=== PATIENT | male | born 1980 | race Caucasian/White ===

== ENCOUNTER 2017-05-10 16:46 | Emergency (ER) | payer MEDICAID ==
[2017-05-10] MEDS ORDERED: NS 2,000 ML IV ONE (17:10)
[2017-05-10] MEDS ORDERED: ACETAMINOPHEN 500 MG TAB PO ONE (17:11)
--- NOTE | 2017-05-10 17:20 | EDPHY ---
H & P Time Seen by Provider: 05/10/17 17:01 HPI/ROS: 48 hr prior to arrival this patient did very fast paced cross fit type work out over a 20 min. Of time and he has developed bilateral triceps swelling since then and pain-4/10 at baseline, 8/10 with movement and associated tingling and slight itching in his arms that are reminiscent of symptoms he had during an episode of rhabdomyolysis last March. He requests workup and treatment to evaluate for this possible diagnosis. He admits that he took much faster pace than usual with his work out on Sunday & he's concerned that that may have caused another episode of rhabdo. ROS: Constitutional: No fevers or other symptoms HEENT: No complaints Neuro: Some paresthesias but no focal numbness or weakness. Pulmonary: No chest pain or shortness of breath : No hematuria or dark urine is noticed. No flank pain. GI: No nausea vomiting Integumentary: No skin rash 10 point ROS is otherwise negative Social History: Nonsmoker, no recreational drug use, no steroid use or energy drinks. No excessive caffeine intake He drinks alcohol socially Physical Exam: General Appearance: Alert, no distress. Eyes: Pupils equal and round no pallor or injection. ENT, Mouth: Mucous membranes moist. Respiratory: There are no retractions, lungs are clear to auscultation. Cardiovascular: Regular rate and rhythm. Neurological: GCS 15 with no focal deficits. He maintains normal light touch sensory exam bilateral upper extremities. Skin: Warm and dry, no rashes. Musculoskeletal: Patient has bilateral triceps swelling with associated tenderness. He is unable to completely flexes arms past 120 degrees or so because of increasing pain without maneuver and both triceps. There is no deformity to the triceps however. The no ecchymosis is evident though he has sleeve tattoos of both arms that make analysis of skin color difficult. No other areas of significant muscle tenderness. Extremities are symmetrical, full range of motion. Psychiatric: Mood and affect are normal DIFFERENTIAL DIAGNOSIS: After history and physical exam differential diagnosis was considered for muscle strain, rhabdomyolysis, given bilateral location, doubt tendon tear or muscle tear. Constitutional: Initial Vital Signs Temperature (C) 37 C 05/10/17 17:24 Heart Rate 62 05/10/17 17:24 Respiratory Rate 18 05/10/17 17:24 Blood Pressure 134/62 H 05/10/17 17:24 O2 Sat (%) 96 05/10/17 17:24 O2 Delivery Mode Room Air Allergies/Adverse Reactions: No Known Allergies Allergy (Unverified 05/10/17 16:59) Home Medications: Medication Instructions Recorded Methocarbamol [Robaxin 750 mg (*)] 750 - 1,500 mg PO QID PRN #30 tab 05/10/17 MDM/Departure - MDM Medications Given: Discontinued Medications Acetaminophen (Tylenol) 1,000 mg PO EDNOW ONE Stop: 05/10/17 17:12 Last Admin: 05/10/17 17:20 Dose: 1,000 mg Sodium Chloride (Ns) 2,000 mls @ 0 mls/hr IV EDNOW ONE; Wide Open PRN Reason: Protocol Stop: 05/10/17 17:11 Last Admin: 05/10/17 17:21 Dose: 2,000 mls Ketorolac Tromethamine (Toradol) 15 mg IVP EDNOW ONE Stop: 05/10/17 18:10 Last Admin: 05/10/17 18:21 Dose: 15 mg ED Course/Re-evaluation: IV normal saline bolus Tylenol p.o. Review of labs reveals normal CBC, normal chemistries including normal kidney function. CPK is mildly elevated to twice normal-in the 400s. Urinalysis reveals no proteinuria. Trace positive for blood on automated and negative for RBCs-possible trace hemosiderin. Discussion: Patient here with triceps muscle strain. Given results of labs-no evidence of actual rhabdomyolysis. Given his pain, will treat him with Toradol IV, normal saline bolus, and recommend methocarbamol, Tylenol and ibuprofen as an outpatient. I discussed these lab findings with the patient, his diagnosis and treatment plan. I answered all of his questions. Patient is stable without further complaints that time of discharge. - Depart Disposition: Home, Routine, Self-Care Clinical Impression: Localized swelling, mass and lump, upper limb, bilateral, History of rhabdomyolysis Strain of triceps muscle Qualifiers: Encounter type: initial encounter Laterality: unspecified laterality Qualified Code(s): S46.319A - Strain of muscle, fascia and tendon of triceps, unspecified arm, initial encounter Condition: Good Instructions: Muscle Strain (ED) Additional Instructions: Diagnosis: Bilateral triceps muscle strain and upper arm swelling. Your CPK-muscle breakdown enzyme did not reach levels today of rhabdomyolysis. Plan: Drink plenty fluids Ibuprofen if needed for swelling and pain Tylenol in addition Robaxin/methocarbamol muscle relaxant in addition if needed for pain or muscle spasm/tightness. Return if you develop bloody urine, flank pain or any other concerns. Prescriptions: Methocarbamol [Robaxin 750 mg (*)] 750 - 1,500 mg PO QID PRN #30 tab PRN Reason: Muscle Spasms Referrals: NONE *PRIMARY CARE P,. [Primary Care Provider] - As per Instructions
[2017-05-10 17:26] VITALS: TEMP 98.6
[2017-05-10 17:52] LABS: CREATINE KINASE 431 IU/L (0-224)
[2017-05-10] MEDS ORDERED: KETOROLAC 15 MG/1 ML SDV IVP ONE (18:09)
[2017-05-10 18:25] VITALS: BP 140/75; PULSE 57; RESP 16; O2SAT 98
== END 2017-05-10 18:47 | disposition home or self-care (01) ==
LOC: CED 16:46
PROC: 3E0337Z Introduction of Electrolytic and Water Balance Substance into Peripheral Vein, Percutaneous Approach (ICD-10-PCS; principal; 2017-05-10)
DX: S46.311A Strain of muscle, fascia and tendon of triceps, right arm, initial encounter (principal); S46.312A Strain of muscle, fascia and tendon of triceps, left arm, initial encounter; R22.31 Localized swelling, mass and lump, right upper limb; R22.32 Localized swelling, mass and lump, left upper limb; Z87.39 Personal history of other diseases of the musculoskeletal system and connective tissue; X58.XXXA Exposure to other specified factors, initial encounter
CPT/HCPCS: 80048-PO; 81003-PO; 81015-PO; 82550-PO; 82553-PO; 96374; J1885

== ENCOUNTER 2017-09-04 14:52 | Emergency (ER) | payer MEDICAID ==
[2017-09-04] MEDS ORDERED: NS 1,000 ML IV ONE ×2 (15:17→16:59)
[2017-09-04] MEDS ORDERED: KETOROLAC 30 MG/1 ML SDV IVP ONE (15:17)
--- NOTE | 2017-09-04 15:26 | EDPHY ---
H & P Time Seen by Provider: 09/04/17 15:02 HPI/ROS: This patient participated in high volume work out 3 days ago but consisted of a lot of running and weight lifting. He notes over the past 24 hr swelling to his right latissimus dorsi and shoulder muscles as well as his elbows bilaterally and reports a feeling of warmth and swelling to these areas. He reports 5/10 pains. He today also notes onset of generalized fatigue. He notes no other associated symptoms but he has had 1 episode of rhabdomyolysis after a high-volume work out in the past is apprehensive that he may have rhabdomyolysis. He also felt much improved and a prior similar episode when he received IV fluids and nonsteroidal anti-inflammatories. ROS: Constitutional: No fevers. Positive fatigue. HEENT: No complaints new line pulmonary: No shortness of breath or cough. Cardiovascular: No lightheadedness. No heart palpitations GI: No nausea vomiting : No flank pain or hematuria or dark colored urine. Integumentary: No skin rashes Neuro: No numbness or tingling in his extremities. 10 point ROS is otherwise negative. Past Medical/Surgical History: Rhabdomyolysis Social History: Patient reports he typically drinks socially but admits to binge drinking 8 beers after his high volume work out of Sunday. He is concerned that he may have caused dehydration that may have contributed to his current misery. He smokes marijuana but denies any other drug use. He denies any steroid use. No energy drinks. Smoking Status: Never smoked Physical Exam: Vital signs are normal General Appearance: Alert, no distress. Eyes: Pupils equal and round no pallor or injection. ENT, Mouth: Mucous membranes moist. Respiratory: There are no retractions, lungs are clear to auscultation. Cardiovascular: Regular rate and rhythm. Gastrointestinal: Abdomen is soft and nontender, no masses, bowel sounds normal. Neurological: GCS 15 with no focal deficits. Skin: Warm and dry, no rashes. Musculoskeletal: Neck is supple nontender. Extremities are symmetrical, full range of motion. Psychiatric: Mood and affect are normal. DIFFERENTIAL DIAGNOSIS: After history and physical exam differential diagnosis was considered for muscle strain, dehydration, rhabdomyolysis Constitutional: Initial Vital Signs Temperature (C) 37.1 C 09/04/17 15:02 Heart Rate 63 09/04/17 15:02 Respiratory Rate 16 09/04/17 15:02 Blood Pressure 113/76 09/04/17 15:02 O2 Sat (%) 95 09/04/17 15:02 O2 Delivery Mode Room Air Allergies/Adverse Reactions: No Known Allergies Allergy (Verified 09/04/17 15:02) Home Medications: Medication Instructions Recorded Methocarbamol [Robaxin 750 mg (*)] 750 - 1,500 mg PO QID PRN #30 tab 09/04/17 MDM/Departure - MDM Medications Given: Discontinued Medications Sodium Chloride (Ns) 1,000 mls @ 0 mls/hr IV EDNOW ONE; Wide Open PRN Reason: Protocol Stop: 09/04/17 15:18 Last Admin: 09/04/17 15:50 Dose: 1,000 mls Sodium Chloride (Ns) 1,000 mls @ 0 mls/hr IV ONCE ONE; Wide Open PRN Reason: Protocol Stop: 09/04/17 17:00 Last Admin: 09/04/17 17:14 Dose: 1,000 mls Ketorolac Tromethamine (Toradol) 30 mg IVP EDNOW ONE Stop: 09/04/17 15:18 Last Admin: 09/04/17 16:25 Dose: 30 mg ED Course/Re-evaluation: IV normal saline bolus x2 L, Toradol IV Studies: Urinalysis is normal, heme-negative CBC normal Basic metabolic panel including creatinine and calcium normal CPKs elevated to just over 16,000 After review of the literature used the make man risk assessment tool in this patient with young age, normal creatinine, normal calcium and CPK under 40,000 with a very low risk of developing rhabdo related kidney injury at 72 hr. I also spoke with Dr. Dyer-bell ringer on-call who agrees with plan for discharge home after IV hydration with no need for further follow-up unless he develops new onset of symptoms such as flank pain, dark urine or other concerns. I counseled patient regarding this in some detail and answered all his questions prior to discharge home with plan to treating any ongoing muscle strain symptoms with methocarbamol and Tylenol. He understands need to return emergency department should she develop worsening symptoms despite the treatment plan. - Depart Disposition: Home, Routine, Self-Care Clinical Impression: Muscle strain Rhabdomyolysis Qualifiers: Rhabdomyolysis type: non-traumatic Qualified Code(s): M62.82 - Rhabdomyolysis Condition: Good Instructions: Methocarbamol (By mouth), Rhabdomyolysis (ED) Additional Instructions: Diagnosis: 1. rhabdomyolysis 2. Multiple muscle strains Plan: Drink plenty fluids. Tylenol and methocarbamol for pains as needed Follow up with primary care physician if you have ongoing symptoms that persist beyond the next few days. Return emergency department if he developed dark appearing urine, flank pain, nausea vomiting or other concerns. Avoid over exertion combined with excess alcohol in the future. Prescriptions: Methocarbamol [Robaxin 750 mg (*)] 750 - 1,500 mg PO QID PRN #30 tab PRN Reason: Muscle Spasms Referrals: NONE *PRIMARY CARE P,. [Primary Care Provider] - As per Instructions Kathryn Kaufman DO [Doctor of Osteopathy] - As per Instructions
[2017-09-04 17:26] LABS: CREATINE KINASE 16060 IU/L (0-224)
[2017-09-04 18:02] LABS: PLATELET COUNT 182 10^3/uL (150-400)
[2017-09-04 18:41] VITALS: BP 127/75
== END 2017-09-04 18:38 | disposition home or self-care (01) ==
LOC: CED 14:52
DX: S46.911A Strain of unspecified muscle, fascia and tendon at shoulder and upper arm level, right arm, initial encounter (principal); M62.82 Rhabdomyolysis; E86.9 Volume depletion, unspecified; X50.0XXA Overexertion from strenuous movement or load, initial encounter; Y99.8 Other external cause status; Y93.02 Activity, running
CPT/HCPCS: 80048-PO; 81003-PO; 82550-PO; 82553-PO; 85025-PO; 96374; J1885